=== PATIENT | male | born 1975 | race African-American/Black ===

== ENCOUNTER 2016-12-04 20:55 | Inpatient (IN) | payer OTHER ==
[~2016-12-04] VITALS: Ht 180.3 cm; Wt 94.0 kg
[~2016-12-04 20:55] MED LIST: IBUPROFEN 600600 M1 PO; NORCO 5-325 TA1 EACH PO
[2016-12-04 20:56] VITALS: BP 138/92
[2016-12-04 22:07] LABS: HEMATOCRIT 43.7 % (42.0-52.0); HEMOGLOBIN 14.7 gm/dL (14.0-18.0); MCH 29.5 pg (26.0-34.0); MCHC 33.7 g/dL (28.0-37.0); MCV 87.6 fL (80.0-100.0); PLATELET COUNT 320 thou/uL (150-400); RBC 4.99 mil/uL (4.50-6.00); RDW 16.3 % (10.5-14.5); WBC 7.9 thou/uL (4.0-11.0)
[2016-12-04 22:08] LABS: MANUAL DIFF YES
[2016-12-04 22:13] LABS: CALCIUM 10.1 mg/dL (8.5-10.1); CREATININE 10.1 mg/dL (0.7-1.3); POTASSIUM 3.7 mmol/L (3.5-5.1)
[2016-12-04 22:17] LABS: TOTAL BILIRUBIN 0.6 mg/dL (<0.1-1.0); TOTAL PROTEIN 8.8 g/dL (6.4-8.2)
[2016-12-04 22:22] LABS: ABSOLUTE NEUTROPHILS 5.5 thou/uL (1.4-8.2); TOTAL CELL COUNT 100
[2016-12-04 22:23] LABS: ANISOCYTOSIS 1+; POLYCHROMASIA OCCASIONAL
[2016-12-05 00:07] VITALS: BP 136/88
[2016-12-05 00:29] VITALS: BP 149/85
[2016-12-05 03:40] VITALS: BP 133/77
[2016-12-05] MEDS ORDERED: PHOSLYRA667 MG/5 M PO (07:27)
[2016-12-05] MEDS ORDERED: ATORVASTATIN CA40 MG PO (07:29)
[2016-12-05] MEDS ORDERED: NOVOLOG100 UNIT/1 SUBQ (07:29)
[2016-12-05] MEDS ORDERED: COMPAZINE10 MG PO (07:32)
[2016-12-05] MEDS ORDERED: REMERON15 MG PO (07:33)
[2016-12-05] MEDS ORDERED: PANTOPRAZOLE SO40 M1 PO (07:33)
[2016-12-05] MEDS ORDERED: ROBAXIN 750 MG750 M1 PO (07:34)
[2016-12-05] MEDS ORDERED: PHENERGAN 25 MG25 M1 PO (07:35)
[2016-12-05 08:00] VITALS: BP 133/78
[2016-12-05 14:07] LABS: HEMATOCRIT 33.8 % (42.0-52.0); MCH 29.5 pg (26.0-34.0); MCHC 33.5 g/dL (28.0-37.0); RBC 3.85 mil/uL (4.50-6.00); RDW 15.8 % (10.5-14.5); WBC 5.9 thou/uL (4.0-11.0)
[2016-12-05 14:10] LABS: POTASSIUM 3.5 mmol/L (3.5-5.1)
[2016-12-05 14:19] LABS: CALCIUM 8.1 mg/dL (8.5-10.1); CREATININE 8.3 mg/dL (0.7-1.3)
[2016-12-05 14:23] LABS: HEMOGLOBIN 11.3 gm/dL (14.0-18.0)
[2016-12-05 16:00] VITALS: BP 129/84
[2016-12-05 19:30] VITALS: BP 133/71
[2016-12-06 04:20] VITALS: BP 168/85
[2016-12-06 05:23] VITALS: BP 168/85
[2016-12-06 06:27] LABS: HEMATOCRIT 31.9 % (42.0-52.0); HEMOGLOBIN 10.7 gm/dL (14.0-18.0); MCH 29.4 pg (26.0-34.0); MCHC 33.5 g/dL (28.0-37.0); MCV 87.9 fL (80.0-100.0); RBC 3.63 mil/uL (4.50-6.00); RDW 15.8 % (10.5-14.5); WBC 7.2 thou/uL (4.0-11.0)
[2016-12-06 06:47] LABS: CALCIUM 8.1 mg/dL (8.5-10.1); PHOSPHORUS 4.5 mg/dL (2.5-4.9); POTASSIUM 3.8 mmol/L (3.5-5.1)
[2016-12-06 07:37] VITALS: BP 152/80
[2016-12-06 19:10] VITALS: BP 135/73
[2016-12-07 03:45] LABS: HEMATOCRIT 33.1 % (42.0-52.0); MCH 29.4 pg (26.0-34.0); MCHC 33.3 g/dL (28.0-37.0); MCV 88.3 fL (80.0-100.0); RBC 3.75 mil/uL (4.50-6.00); RDW 15.7 % (10.5-14.5); WBC 7.8 thou/uL (4.0-11.0)
[2016-12-07 04:00] LABS: CALCIUM 8.1 mg/dL (8.5-10.1)
[2016-12-07 04:03] LABS: CREATININE 7.5 mg/dL (0.7-1.3); POTASSIUM 4.9 mmol/L (3.5-5.1)
[2016-12-07 05:03] VITALS: BP 176/87
[2016-12-07 08:22] VITALS: BP 164/74
[2016-12-07 16:27] VITALS: BP 153/83
[2016-12-07 19:24] VITALS: BP 151/90
[2016-12-08 03:16] LABS: HEP B SURFACE Ab(ANTI-HBS Reactive (())
== END 2016-12-07 20:00 | disposition left against medical advice (07) | DRG 73 ==
LOC: ER 20:55 → 4S 23:53 → EROBS 23:53 → 4S 12-05 00:16
PROVIDERS: Emergency Medicine; Family Medicine; Hospitalist; Nurse Practitioner Family
PROC: 5A1D60Z (ICD-10-PCS; principal; 2016-12-05)
DX: E10.43 Type 1 diabetes mellitus with diabetic autonomic (poly)neuropathy (principal); N18.6 End stage renal disease; I12.0 Hypertensive chronic kidney disease with stage 5 chronic kidney disease or end stage renal disease; K31.84 Gastroparesis; E10.649 Type 1 diabetes mellitus with hypoglycemia without coma; E10.22 Type 1 diabetes mellitus with diabetic chronic kidney disease; E86.0 Dehydration; Z99.2 Dependence on renal dialysis; Z79.4 Long term (current) use of insulin; Z79.899 Other long term (current) drug therapy; Z88.8 Allergy status to other drugs, medicaments and biological substances; Z91.048 Other nonmedicinal substance allergy status; Z83.71 Family history of colonic polyps
CPT/HCPCS: 10102; 32100

== ENCOUNTER 2016-12-13 00:02 | Inpatient (IN) | payer OTHER ==
[~2016-12-13] VITALS: Ht 170.2 cm; Wt 81.6 kg
--- NOTE | ~2016-12-13 | HC ---
[facility] [place] [address] CONSULTATION Name: MANDIE SPICER Room #: 442-P ADM IN .R.#: [id number] Admission: 12/14/16 Attend Phys: Fortino Manriquez MD Discharge: Date of : 79 Report #: [id number] THIS REPORT FOR: //name// CC: LEIGH Manriquez REASON FOR CONSULTATION: End-stage renal disease. REASON FOR PRESENTATION: Flare-up of his gastroparesis. HISTORY OF PRESENT ILLNESS: The patient is well known to me. I had evaluated him last week. He has an end-stage renal disease due to diabetes mellitus. He suffers from severe gastroparesis. He was in the hospital and signed AMA 10 days ago. Most of his care is at . He presented with nausea, vomiting, abdominal pain. He usually dialyzes every Saturday, Saturday and Saturday. I am being consulted to manage his end-stage renal disease, on dialysis. Of note is the fact that the patient has a J tube that he uses intermittently for his feeding if his gastroparesis flares up. He presented yet again with another episode yesterday and was admitted for further evaluation and management. Complete workup has been done in the past. PAST MEDICAL HISTORY: 1. End-stage renal disease due to diabetes mellitus and hypertension. 2. Endocarditis. 3. Gastroparesis. 4. Diabetes mellitus. PAST SURGICAL HISTORY: 1. AV fistula, right-sided. 2. J-tube. ALLERGIES: Angioedema related to LISINOPRIL. MEDICATIONS: 1. Protonix. 2. Phenergan. 3. Hydrocodone. 4. Calcium. 5. Atorvastatin. SOCIAL HISTORY: He denies drug or alcohol abuse. FAMILY HISTORY: His father had some colon polyps. REVIEW OF SYSTEMS: GENERAL: No fever or chills. CARDIOVASCULAR: No chest pain or palpitation. [facility] [address] [place] [address] CONSULTATION Name: MANDIE SPICER Room #: 442-P [facility] IN [facility]#: [id number] Admission: 12/14/16 Attend Phys: Fortino Manriquez MD Discharge: Date of : 79 Report #: [id number] PULMONARY: No cough or hemoptysis. GASTROINTESTINAL: As per the history of present illness. GENITOURINARY: Non-relevant. MUSCULOSKELETAL: No back pain. No morning stiffness. NEUROLOGICAL: Occasional headaches and dizziness. PHYSICAL EXAMINATION: GENERAL: He is alert, oriented, does not seem to be in apparent distress. VITAL SIGNS: Temperature was 37.2, blood pressure was 156/92. HEAD AND NECK: No jugular venous distention, no bruit, no thyromegaly. CHEST: Clear to auscultation. CARDIOVASCULAR: Regular with no rub detected. ABDOMEN: Soft with a J tube in place. LOWER EXTREMITIES: No edema. UPPER EXTREMITIES: Right upper extremity edema. LABORATORY DATA: Values reviewed. Chemistry from yesterday revealed a sodium of 140, potassium of 3.3, chloride of 96, carbon dioxide of 33, creatinine of 7. Albumin 3.1, lipase was 62. IMAGING: Including his abdomen and pelvis CT were reviewed and this was consistent with bladder wall thickening. He had some thickening of the distal wall of the esophagus. ASSESSMENT, IMPRESSION AND PLAN: 1. End-stage renal disease. 2. Gastroparesis. 3. Diabetes mellitus. 4. Bladder wall thickening on the CT scan. 5. Distal esophageal wall thickening on the CT. 6. From the renal perspective, we will arrange for the patient to have his usual dialysis every Saturday, Saturday and Saturday. 7. Blood sugar control. 8. Continue with the current management of his gastroparesis as per the GI and the hospitalist team. As usual, it is my pleasure to evaluate the patient. Should you have any question, please do not hesitate to call me. <ELECTRONICALLY SIGNED> By: Michael Weaver MD 12/16/16 1043 0800 1159 Michael Weaver MD /nt
--- NOTE | ~2016-12-13 | EKG ---
[address] [address] ELECTROCARDIOGRAM REPORT Name: DAVID SPICERMichelle Sierra Room #: 170-7 [facility]..#: [id number] Admission: 12/13/16 Attend Phys: Fortino Manriquez MD Discharge: Date of : 79 Report #: [id number] THIS REPORT FOR: //name// 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
--- NOTE | ~2016-12-13 | D ---
[facility] [place] [address] DISCHARGE SUMMARY Name: MANDIE SPICER Room #: 442-P [facility] IN ..#: [id number] Admission: 12/14/16 Attend Phys: Fortino Manriquez MD Discharge: 12/16/16 Date of : 79 Report #: [id number] THIS REPORT FOR: //name// CC: LEIGH Manriquez DISCHARGE DIAGNOSES: 1. Gastroparesis. 2. End-stage renal disease. 3. Hypertension. 4. Diabetes mellitus. PROCEDURE DONE: Abdomen and pelvic CT. CONSULTATION: Nephrology. REASON FOR PRESENTATION: Abdominal pain, nausea and vomiting. HISTORY OF PRESENT ILLNESS: This is a 41-year-old with history of gastroparesis, end-stage renal disease, maintained on hemodialysis, who left [place] on last admission due to staff not providing him with narcotics. He is a [facility] dialysis patient who dialyzes every Saturday, Saturday and Saturday. He presented with intractable nausea and vomiting. He is known to have gastroparesis and had a PEG tube for feeding when he is not able to tolerate. He was admitted for further evaluation and management. Full evaluation has been done on the previous admission. HOSPITAL COURSE: The patient was admitted for his gastroparesis. P.r.n. nausea and vomiting medications provided. Dialysis was scheduled as usual every Saturday, Saturday and Saturday. The patient was requesting Dilaudid. I had a lengthy discussion with the patient that all narcotics will aggravate his gastroparesis. He was advised not to take any narcotics. He had an episode of hematuria on his presentation, urine cultures are still pending. He is strongly advised to follow up with his lodging facilities manager and his primary care physicians regarding this hematuria. FOLLOWUP: He will need to follow up with his usual dialysis unit and with his primary care physicians regarding the urine culture and the hematuria. DISCHARGE INSTRUCTIONS: Avoid narcotics. MEDICATIONS: Same home medications with no change. DISCHARGE CONDITION: Excellent. [facility] [address] [place] [address] DISCHARGE SUMMARY Name: SPICERMANDIE Room #: 442-[facility].#: [id number] Admission: 12/14/16 Attend Phys: Fortino Manriquez MD Discharge: 12/16/16 Date of : 79 Report #: [id number] OTHER FOLLOWUP: You need a strict blood sugar control and you need to follow up with your account development associate regarding your insulin pump dose. <ELECTRONICALLY SIGNED> By: Michael Weaver MD 12/16/16 1548 1112 1132 Michael Weaver MD /nt
[~2016-12-13 00:02] MED LIST changes: +ATORVASTATIN CA40 MG PO; +COMPAZINE10 MG PO; +NOVOLOG100 UNIT/1 SUBQ; +PANTOPRAZOLE SO40 M1 PO; +PHENERGAN 25 MG25 M1 PO; +PHOSLYRA667 MG/5 M PO; +REMERON15 MG PO; +ROBAXIN 750 MG750 M1 PO
[2016-12-13 00:07] VITALS: BP 129/87
[2016-12-13 03:07] LABS: HEMATOCRIT 35.4 % (42.0-52.0); MCH 29.4 pg (26.0-34.0); MCV 86.6 fL (80.0-100.0); PLATELET COUNT 333 thou/uL (150-400); RBC 4.09 mil/uL (4.50-6.00); WBC 16.4 thou/uL (4.0-11.0)
[2016-12-13 03:08] LABS: MANUAL DIFF YES
[2016-12-13 03:12] LABS: CALCIUM 9.2 mg/dL (8.5-10.1); POTASSIUM 3.3 mmol/L (3.5-5.1)
[2016-12-13 03:17] LABS: ALBUMIN 3.1 g/dL (3.4-5.0); TOTAL BILIRUBIN 0.6 mg/dL (<0.1-1.0); TOTAL PROTEIN 7.4 g/dL (6.4-8.2)
[2016-12-13 04:32] LABS: ABSOLUTE NEUTROPHILS 13.6 thou/uL (1.4-8.2); ANISOCYTOSIS SLIGHT; TOTAL CELL COUNT 100
[2016-12-13 07:23] VITALS: BP 176/64
[2016-12-13 07:44] VITALS: BP 170/72
[2016-12-13 10:00] VITALS: BP 148/43
[2016-12-13 15:50] VITALS: BP 147/60
[2016-12-13 20:30] VITALS: BP 148/69
[2016-12-14 05:25] VITALS: BP 156/92
[2016-12-14 08:00] VITALS: BP 187/74
[2016-12-14 09:49] LABS: HEMATOCRIT 30.8 % (42.0-52.0); HEMOGLOBIN 10.4 gm/dL (14.0-18.0); MCH 29.2 pg (26.0-34.0); MCHC 33.7 g/dL (28.0-37.0); MCV 86.6 fL (80.0-100.0); RBC 3.56 mil/uL (4.50-6.00); RDW 15.1 % (10.5-14.5); WBC 13.1 thou/uL (4.0-11.0)
[2016-12-14 09:59] LABS: CALCIUM 8.1 mg/dL (8.5-10.1); POTASSIUM 4.5 mmol/L (3.5-5.1)
[2016-12-14 10:01] LABS: CREATININE 8.8 mg/dL (0.7-1.3)
[2016-12-14 15:57] VITALS: BP 187/74
[2016-12-14 16:05] VITALS: BP 135/73
[2016-12-14 19:13] VITALS: BP 143/79
[2016-12-15 04:57] VITALS: BP 164/85
[2016-12-15 05:36] LABS: HEMATOCRIT 31.5 % (42.0-52.0); HEMOGLOBIN 10.5 gm/dL (14.0-18.0); MCH 29.1 pg (26.0-34.0); MCHC 33.5 g/dL (28.0-37.0); MCV 86.9 fL (80.0-100.0); RBC 3.62 mil/uL (4.50-6.00); WBC 11.5 thou/uL (4.0-11.0)
[2016-12-15 05:51] LABS: CALCIUM 8.5 mg/dL (8.5-10.1); POTASSIUM 4.2 mmol/L (3.5-5.1)
[2016-12-15 08:38] LABS: URINE BILIRUBIN NEGATIVE (Negative); URINE BLOOD 3+ (Negative); URINE COLOR YELLOW; URINE GLUCOSE-RANDOM* 1+ (Negative); URINE KETONES TRACE (Negative); URINE LEUKOCYTES-REFLEX 1+ (Negative); URINE PROTEIN (DIPSTICK) 3+ (Negative); URINE SPECIFIC GRAVITY 1.015 (1.003-1.035); URINE UROBILINOGEN 0.2 E.U./dl (0.2-1.0)
[2016-12-15 08:47] LABS: URINE WBC-REFLEX >25 Many /HPF (0-5)
[2016-12-15 08:48] VITALS: BP 171/73
[2016-12-15 08:48] LABS: CASTS None Seen /LPF (None Seen); CRYSTALS None Seen /LPF (None Seen); SQUAMOUS None Seen /LPF (0-3); URINE RBC >20 Many /HPF (0-2)
[2016-12-15 17:19] VITALS: BP 169/89
[2016-12-15 19:45] VITALS: BP 160/82
[2016-12-16 04:43] VITALS: BP 174/89
[2016-12-16 05:39] LABS: HEMATOCRIT 32.5 % (42.0-52.0); HEMOGLOBIN 10.6 gm/dL (14.0-18.0); MCH 28.6 pg (26.0-34.0); MCHC 32.7 g/dL (28.0-37.0); MCV 87.7 fL (80.0-100.0); RBC 3.71 mil/uL (4.50-6.00); RDW 15.2 % (10.5-14.5); WBC 10.9 thou/uL (4.0-11.0)
[2016-12-16 05:54] LABS: ALBUMIN 2.5 g/dL (3.4-5.0); CALCIUM 8.8 mg/dL (8.5-10.1); POTASSIUM 4.6 mmol/L (3.5-5.1); TOTAL BILIRUBIN 0.4 mg/dL (<0.1-1.0); TOTAL PROTEIN 6.6 g/dL (6.4-8.2)
[2016-12-16 06:04] LABS: CREATININE 7.6 mg/dL (0.7-1.3)
[2016-12-16 08:28] VITALS: BP 179/84
[2016-12-16 23:06] LABS: GLYCOHEMOGLOBIN (HGB A1C) 5.6 % (4.8-5.6)
== END 2016-12-16 13:00 | disposition home or self-care (01) | DRG 73 ==
LOC: ER 00:02 → EROBS 05:29 → 4S 05:29 → EROBS 17:11 → 4S 12-14 17:11
PROVIDERS: Emergency Medicine; Hospitalist
PROC: 5A1D00Z (ICD-10-PCS; principal; 2016-12-14)
DX: E10.43 Type 1 diabetes mellitus with diabetic autonomic (poly)neuropathy (principal); N18.6 End stage renal disease; I12.0 Hypertensive chronic kidney disease with stage 5 chronic kidney disease or end stage renal disease; E86.0 Dehydration; K31.84 Gastroparesis; I10 Essential (primary) hypertension; Z93.1 Gastrostomy status; Z88.8 Allergy status to other drugs, medicaments and biological substances; Z79.4 Long term (current) use of insulin; Z79.899 Other long term (current) drug therapy; Z99.2 Dependence on renal dialysis; Z83.71 Family history of colonic polyps; E10.22 Type 1 diabetes mellitus with diabetic chronic kidney disease
CPT/HCPCS: 10195; 32100

== ENCOUNTER 2016-12-18 14:49 | Emergency (ER) | payer OTHER ==
[~2016-12-18] VITALS: Ht 177.8 cm; Wt 79.4 kg
[2016-12-18 16:15] LABS: HEMATOCRIT 36.5 % (42.0-52.0); MANUAL DIFF YES; MCH 29.1 pg (26.0-34.0); MCHC 32.9 g/dL (28.0-37.0); MCV 88.3 fL (80.0-100.0); PLATELET COUNT 361 thou/uL (150-400); RBC 4.14 mil/uL (4.50-6.00); WBC 9.3 thou/uL (4.0-11.0)
[2016-12-18 16:21] LABS: ANION GAP 11 mmol/L (7-16); BUN 19 mg/dL (7-18); CALCIUM 9.1 mg/dL (8.5-10.1); CHLORIDE 102 mmol/L (98-107); CO2 31 mmol/L (21-32); CREATININE 7.2 mg/dL (0.7-1.3); GLUCOSE 93 mg/dL (74-106); POTASSIUM 3.2 mmol/L (3.5-5.1); SODIUM 144 mmol/L (136-145)
[2016-12-18 16:29] LABS: ALBUMIN 2.8 g/dL (3.4-5.0); ALKALINE PHOSPHATASE 104 U/L (46-116); SGOT 13 U/L (15-37); SGPT 9 U/L (30-65); TOTAL BILIRUBIN 0.3 mg/dL (<0.1-1.0); TOTAL PROTEIN 7.2 g/dL (6.4-8.2); TROPONIN-I < 0.04 ng/mL (<0.04-0.07)
[2016-12-18 16:45] LABS: ABSOLUTE NEUTROPHILS 6.4 thou/uL (1.4-8.2); ANISOCYTOSIS SLIGHT; TOTAL CELL COUNT 100
[2016-12-18] MEDS ORDERED: ZOFRAN ODT8 MG PO (18:41)
[2016-12-18 19:06] LABS: URINE BILIRUBIN NEGATIVE (Negative); URINE BLOOD 1+ (Negative); URINE COLOR YELLOW; URINE GLUCOSE-RANDOM* 1+ (Negative); URINE KETONES NEGATIVE (Negative); URINE LEUKOCYTES-REFLEX 1+ (Negative); URINE PROTEIN (DIPSTICK) 2+ (Negative); URINE SPECIFIC GRAVITY 1.015 (1.003-1.035); URINE UROBILINOGEN 0.2 E.U./dl (0.2-1.0)
[2016-12-18 19:18] LABS: CASTS None Seen /LPF (None Seen); CRYSTALS None Seen /LPF (None Seen); SQUAMOUS 0-3 Few /LPF (0-3); URINE RBC 3-10 Few /HPF (0-2)
[2016-12-18 19:19] LABS: WBC CLUMPS Rare (None Seen)
== END 2016-12-18 19:12 | disposition home or self-care (01) ==
LOC: ER 14:49
PROVIDERS: Emergency Medicine
DX: E10.22 Type 1 diabetes mellitus with diabetic chronic kidney disease (principal); N18.6 End stage renal disease; E10.43 Type 1 diabetes mellitus with diabetic autonomic (poly)neuropathy; K31.84 Gastroparesis; E10.649 Type 1 diabetes mellitus with hypoglycemia without coma; E87.6 Hypokalemia; Z79.4 Long term (current) use of insulin; Z88.8 Allergy status to other drugs, medicaments and biological substances

== ENCOUNTER 2017-02-11 04:04 | Emergency (ER) | payer OTHER ==
[~2017-02-11] VITALS: Ht 180.3 cm; Wt 108.9 kg
--- NOTE | ~2017-02-11 | EKG ---
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 : 1975 Requested By: Alejo Morales Order Number: [id number] MD: Uri Moon Measurements Intervals [place] Rate: 89 P: 57 [place]: 146 QRS: 47 QRSD: 79 T: 37 QT: 377 QTc: 459 Interpretive Statements Incomplete analysis due to missing data in precordial lead(s) Sinus rhythm Baseline wander in lead(s) V2 Missing lead(s): V3 Compared to ECG 12/13/2016 01:03:18 ST and T-wave abnormality no longer present Electronically Signed On 02-11-2017 8:52:32 CDT by Uri Moon [email or web address] <ELECTRONICALLY SIGNED> By: Uri Moon MD, [facility] 02/11/17 0852 0445 0445 Uri Moon MD, [facility] /EPI
[~2017-02-11 04:04] MED LIST changes: +ZOFRAN ODT8 MG PO
[2017-02-11 05:07] LABS: HEMATOCRIT 34.5 % (42.0-52.0); HEMOGLOBIN 11.5 gm/dL (14.0-18.0); MCH 29.2 pg (26.0-34.0); MCHC 33.3 g/dL (28.0-37.0); MCV 87.7 fL (80.0-100.0); PLATELET COUNT 265 thou/uL (150-400); RBC 3.93 mil/uL (4.50-6.00); RDW 15.2 % (10.5-14.5); WBC 8.2 thou/uL (4.0-11.0)
[2017-02-11 05:08] LABS: MANUAL DIFF YES
[2017-02-11 05:15] LABS: ANION GAP 13 mmol/L (7-16); BUN 52 mg/dL (7-18); CALCIUM 9.7 mg/dL (8.5-10.1); CHLORIDE 97 mmol/L (98-107); CO2 29 mmol/L (21-32); CREATININE 10.5 mg/dL (0.7-1.3); GLUCOSE 107 mg/dL (74-106); POTASSIUM 3.4 mmol/L (3.5-5.1); SODIUM 139 mmol/L (136-145)
[2017-02-11 05:23] LABS: ALBUMIN 3.5 g/dL (3.4-5.0); ALKALINE PHOSPHATASE 125 U/L (46-116); SGOT 16 U/L (15-37); SGPT 17 U/L (30-65); TOTAL BILIRUBIN 0.6 mg/dL (<0.1-1.0); TOTAL PROTEIN 7.7 g/dL (6.4-8.2); TROPONIN-I < 0.04 ng/mL (<0.04-0.07)
[2017-02-11 05:47] LABS: ABSOLUTE NEUTROPHILS 5.2 thou/uL (1.4-8.2); ANISOCYTOSIS 1+; HYPOCHROMASIA 1+; POLYCHROMASIA OCCASIONAL; TOTAL CELL COUNT 100
[2017-02-11] MEDS ORDERED: NAPROSYN500 MG PO (08:31)
== END 2017-02-11 09:24 | disposition home or self-care (01) ==
LOC: ER 04:04
PROVIDERS: Emergency Medicine
DX: E11.43 Type 2 diabetes mellitus with diabetic autonomic (poly)neuropathy (principal); K31.84 Gastroparesis; E11.22 Type 2 diabetes mellitus with diabetic chronic kidney disease; N18.6 End stage renal disease; Z99.2 Dependence on renal dialysis; Z79.4 Long term (current) use of insulin; Z91.048 Other nonmedicinal substance allergy status; Z88.8 Allergy status to other drugs, medicaments and biological substances

== ENCOUNTER 2017-04-21 21:24 | Emergency (ER) | payer OTHER ==
[~2017-04-21] VITALS: Ht 180.3 cm; Wt 97.5 kg
[~2017-04-21 21:24] MED LIST changes: +NAPROSYN500 MG PO
[2017-04-21] MEDS ORDERED: COMPAZINE25 MG RECTAL (21:57)
[2017-04-21] MEDS ORDERED: PHENERGAN 25 MG25 M1 PO (21:57)
[2017-04-21 22:03] LABS: HEMATOCRIT 37.3 % (42.0-52.0); MCH 29.3 pg (26.0-34.0); MCHC 32.3 g/dL (28.0-37.0); MCV 90.7 fL (80.0-100.0); PLATELET COUNT 227 thou/uL (150-400); RBC 4.11 mil/uL (4.50-6.00); RDW 15.9 % (10.5-14.5); WBC 7.3 thou/uL (4.0-11.0)
[2017-04-21 22:05] LABS: CALCIUM 9.3 mg/dL (8.5-10.1); CREATININE 12.8 mg/dL (0.7-1.3); POTASSIUM 3.8 mmol/L (3.5-5.1)
[2017-04-21 22:08] LABS: MANUAL DIFF YES
[2017-04-21 22:10] LABS: ALBUMIN 3.6 g/dL (3.4-5.0); DIRECT BILIRUBIN 0.2 mg/dL (<0.1-0.3); TOTAL BILIRUBIN 0.5 mg/dL (<0.1-1.0); TOTAL PROTEIN 7.6 g/dL (6.4-8.2)
[2017-04-21 22:47] LABS: ABSOLUTE NEUTROPHILS 4.2 thou/uL (1.4-8.2); LARGE PLATELETS FEW; TOTAL CELL COUNT 100
== END 2017-04-21 23:03 | disposition home or self-care (01) ==
LOC: ER 21:24
PROVIDERS: Emergency Medicine
DX: E10.43 Type 1 diabetes mellitus with diabetic autonomic (poly)neuropathy (principal); K31.84 Gastroparesis; E10.22 Type 1 diabetes mellitus with diabetic chronic kidney disease; N18.6 End stage renal disease; Z99.2 Dependence on renal dialysis; Z88.8 Allergy status to other drugs, medicaments and biological substances

== ENCOUNTER 2018-09-24 03:55 | Emergency (ER) | payer OTHER ==
[~2018-09-24] VITALS: Ht 180.3 cm; Wt 108.9 kg
[~2018-09-24 03:55] MED LIST changes: +COMPAZINE25 MG RECTAL
[2018-09-24 05:32] VITALS: BP 105/55
== END 2018-09-24 05:33 | disposition home or self-care (01) ==
LOC: ER 03:55
DX: T82.49XA Other complication of vascular dialysis catheter, initial encounter (principal); Z88.8 Allergy status to other drugs, medicaments and biological substances; E10.43 Type 1 diabetes mellitus with diabetic autonomic (poly)neuropathy; K31.84 Gastroparesis; N18.6 End stage renal disease; Z79.4 Long term (current) use of insulin; Z99.2 Dependence on renal dialysis; Z91.048 Other nonmedicinal substance allergy status; Y84.9 Medical procedure, unspecified as the cause of abnormal reaction of the patient, or of later complication, without mention of misadventure at the time of the procedure; Y92.89 Other specified places as the place of occurrence of the external cause